=== PATIENT | male | born 1975 | race Two or more races ===

== ENCOUNTER 2022-12-29 15:33 | Outpatient (CLI) | payer OTHER ==
[~2022-12-29 15:33] MED LIST: CEFADROXIL500 MG PO
== END 2022-12-29 15:42 | disposition home or self-care (01) ==
LOC: RAD 15:33
PROVIDERS: ATTEND General Practice
DX: M54.9 Dorsalgia, unspecified (principal); M54.2 Cervicalgia

== ENCOUNTER 2023-01-13 09:07 | Emergency (ER) | payer OTHER ==
[~2023-01-13] VITALS: Ht 175.3 cm; Wt 97.5 kg
== END 2023-01-13 14:44 | disposition home or self-care (01) ==
LOC: ER 09:07
DX: M54.2 Cervicalgia (principal); Z91.013 Allergy to seafood; Z20.822 Contact with and (suspected) exposure to COVID-19